=== PATIENT | female | born 1995 | race Caucasian/White ===

== ENCOUNTER → 2017-08-19 | Outpatient (CLI) | payer MEDICAID ==
--- NOTE | 2017-08-19 14:57 | Diagnostic Imaging Report ---
INDICATION: survey. TECHNIQUE: Multiple real-time grayscale images were obtained over the gravid uterus. COMPARISON: None FINDINGS: heart rate is 174 beats per minutes. The placenta is posterior. No placenta previa. There is adequate amniotic fluid seen. The survey demonstrates normal posterior fossa appearance in lateral thickness. The stomach, the kidneys, the spine, the bladder, and three-vessel cord appear unremarkable. The cord insertion and four-chamber view are not well seen due to position. Biometrical measurements are as follows: Biparietal 4.9 cm, age 20 weeks 6 days. Head circumference 17.5 cm, age 20 weeks 1 days. Abdominal circumference 14.2 cm, age 19 weeks 5 days. Femur length 3.4 cm, age 20 weeks 4 days. Sonographic estimate age: 20 weeks 3 days. Sonographic estimated date of delivery: 01/03/18. Estimated Weight: 330 gm (+/- 48 gm). LMP percentile: 27%. heart rate: 174 beats per minute. number: 1 of 1. IMPRESSION: Followup within two weeks is suggested to reevaluate the four-chamber view and cord insertion. Dictated by: Dictated on workstation # [id number]
== END ==
LOC: RAD 13:16
PROVIDERS: ATTEND Obstetrics & Gynecology
DX: Z36 Encounter for antenatal screening of mother (principal); Z3A.20 20 weeks gestation of pregnancy
CPT/HCPCS: 76805

== ENCOUNTER 2017-11-26 15:08 | Outpatient (CLI) | payer MEDICAID ==
[~2017-11-26] VITALS: Ht 162.6 cm; Wt 78.9 kg
[2017-11-26 15:23] VITALS: BP 127/77
[2017-11-26] MEDS ORDERED: FERR325T5 PO (15:27)
[2017-11-26] MEDS ORDERED: PREN1TAB86 PO (15:27)
[2017-11-26 15:50] VITALS: BP 125/81
[2017-11-26 16:20] VITALS: BP 125/81
--- NOTE | 2017-11-28 09:44 | Physician Query-Final Dx ---
HARDIK JONES 11/28/17 0944: Clinic Account Progress/Dx Physician Query: Please give diagnosis Date of Service Nov 26, 2017 at 15:08 JAILENE CADENA DO 11/28/17 1026: Clinic Account Progress/Dx DIAGNOSIS: Diagnosis 33 week IUP Swelling of lower extremities in HARDIK JONES Nov 28, 2017 09:44 JAILENE CADENA DO Nov 28, 2017 10:26
== END 2017-11-26 16:20 | disposition home or self-care (01) ==
LOC: WSo 15:08 → LDRP 15:09 → WSo 16:20
PROVIDERS: ATTEND Obstetrics & Gynecology
DX: O26.893 Other specified pregnancy related conditions, third trimester (principal); M79.89 Other specified soft tissue disorders; Z3A.33 33 weeks gestation of pregnancy
CPT/HCPCS: 99213

== ENCOUNTER 2017-12-21 21:15 | Outpatient (CLI) | payer MEDICAID ==
[~2017-12-21] VITALS: Ht 162.6 cm; Wt 80.3 kg
[~2017-12-21 21:15] MED LIST: FERR325T5 PO; PREN1TAB86 PO
[2017-12-21 21:46] VITALS: BP 139/89
[2017-12-21 22:10] VITALS: BP 139/89
--- NOTE | 2017-12-23 15:52 | Physician Query-Final Dx ---
HARDIK JONES 12/23/17 1552: Clinic Account Progress/Dx Physician Query: Please give diagnosis Date of Service Dec 21, 2017 at 21:15 INDIRA JIMENEZ MD 12/24/17 0802: Clinic Account Progress/Dx DIAGNOSIS: Diagnosis false labor HARDIK JONES Dec 23, 2017 15:52 INDIRA JIMENEZ MD Dec 24, 2017 08:02
== END 2017-12-21 22:10 | disposition home or self-care (01) ==
LOC: WSo 21:15 → LDRP 21:16 → WSo 22:10
PROVIDERS: ATTEND Obstetrics & Gynecology
DX: O47.1 False labor at or after 37 completed weeks of gestation (principal); Z3A.38 38 weeks gestation of pregnancy
CPT/HCPCS: 99213

== ENCOUNTER 2017-12-26 18:39 | Inpatient (IN) | payer MEDICAID ==
[~2017-12-26] VITALS: Ht 162.6 cm; Wt 81.3 kg
[2017-12-26] VITALS (14 sets, daily range): BP systolic 128–170; BP diastolic 55–93
[2017-12-26] MEDS ORDERED: D5 LR IV SOLUTION 1,000 ML IV ONE (20:31)
--- NOTE | 2017-12-26 21:43 | History & Physical-OB ---
OB - Chief Complaint & HPI Date/Time Date of Admission: Date of Admission: 12/26/2017 Time Seen by Provider: 21:30 Chief Complaint/History OB-Reason for Admission/Chief: Onset of Labor Hx : 1 Hx Para: 0 Expected Date of Delivery: Jan 03, 2018 Gestational Age in Weeks: 38 Gestational Age in Days: 6 Admission Nurse Assessment Rev: Yes History of Labs A pos Antibody neg RI RPR NR HBsAg NR HIV NR GC neg GBS neg Allergies and Home Medications Allergies Coded Allergies: No Known Drug Allergies (Unverified , 11/26/17) Home Medications Ferrous Sulfate 325 Mg Tablet.dr, 325 MG PO DAILY, (Reported) Vit W-Ca,Fe,FA(<1 mg) 1 Each Tablet, 1 EACH PO DAILY, (Reported) OB - History Hx of Present Care: Yes Ultrasounds: Normal mid trimester US Obstetrical Complications: None Medical Complications: None Patient Past Medical History n/a Social History/Family History Recent Infectious Disease Expo: No Immunizations Date of Influenza Vaccine: Sep 25, 2017 OB - Admission Exam Physical Exam Vitals: Vital Signs 12/26/17 19:00 Temp 97.9 Pulse 79 Resp 20 B/P (MAP) 136/84 (101) HEENT: NCAT Heart: Rhythm Normal Lungs: Clear Abdomen: Gravid Extremities: Normal Reflexes: Normal Cervical Dilatation: 4cm Effacement: 75% Station: -1 Membranes: Intact Heart Rate: 130's Accelerations: Accelerations Present Decelerations: No Decelerations Short Term Variability: Present Tool Trouble Shooter Variability: Average (6-25) Contractions on Admission: < 5 Minutes Apart Intensity: Firm OB - Assessment/Plan/Diagnosis Assessment Assessment: active labor Plan Induction Method: AROM Other Plan Augmentation of active labor with AROM. Expectant management, may have epidural at request. Discharge Diagnosis Diagnosis: 22 yo @ 38.6 weeks Active labor GBS neg JAILENE CADENA DO Dec 26, 2017 9:43 pm
[2017-12-26] MEDS ORDERED: D5 LR IV SOLUTION 1,000 ML IV SCH (22:22)
[2017-12-26] MEDS ORDERED: LACTATED RINGERS 1,000 ML IV ONE (22:23)
[2017-12-26 22:28] LABS: BASOPHILS % (AUTO) 0 % (0-10); EOSINOPHILS # (AUTO) 0.1 10^3/uL (0.0-0.3); EOSINOPHILS % (AUTO) 0 % (0-10); HEMATOCRIT 33 % (35-52); HEMOGLOBIN 11.2 G/DL (11.5-16.0); LYMPHOCYTES # (AUTO) 2.4 X 10^3 (1.0-4.0); LYMPHOCYTES % (AUTO) 13 % (12-44); MEAN CORPUSCULAR HEMOGLOBIN 30 PG (25-34); MEAN CORPUSCULAR HGB CONC 34 G/DL (32-36); MEAN CORPUSCULAR VOLUME 89 FL (80-99); MEAN PLATELET VOLUME 12.5 FL (7.4-10.4); MONOCYTES # (AUTO) 1.6 X 10^3 (0.0-1.0); MONOCYTES % (AUTO) 9 % (0-12); NEUTROPHILS # (AUTO) 14.1 X 10^3 (1.8-7.8); NEUTROPHILS % (AUTO) 78 % (42-75); PLATELET COUNT 228 10^3/uL (130-400); RED CELL DISTRIBUTION WIDTH 12.9 % (10.0-14.5); WHITE BLOOD COUNT 18.2 10^3/uL (4.3-11.0)
[2017-12-26] MEDS ORDERED: EPIDURAL (SUFENTA 0.6MCG/ML BUPIVA 0.125%) 100 ML BAG EPI SCH (22:30)
[2017-12-26] MEDS ORDERED: CATHETER FLUSH 10 ML SYR IV PRN (22:30)
[2017-12-26] MEDS ORDERED: NALOXONE 0.4 MG/ML 1 ML (NARCAN) VIAL IV PRN (22:30)
[2017-12-26] MEDS ORDERED: ONDANSETRON 4 MG/2 ML (SDV) Z0FRAN ONE (22:36)
[2017-12-26 22:46] LABS: BAND NEUTROPHILS 2 %; BASOPHILS % (MANUAL) 0 %; EOSINOPHILS % (MANUAL) 1 %; LYMPHOCYTES % (MANUAL) 17 %; MONOCYTES % (MANUAL) 3 %; NEUTROPHILS % (MANUAL) 77 %; RBC MORPH NORMAL
[2017-12-26] MEDS ORDERED: BUPIVACAINE 0.25% 30 ML (SENSORCAINE) VIAL ONE (22:59)
[2017-12-26] MEDS ORDERED: fentaNYL INJECTION 100 MCG/2 ML AMP ONE (22:59)
[2017-12-26] MEDS ORDERED: SUFENTA 0.6MCG/ML BUPIVA 0.125 100 ML ONE (23:51)
[2017-12-26] MEDS ORDERED: OXYTOCIN/NORMAL SALINE 500 ML IV ONE (23:52)
[2017-12-27] VITALS (17 sets, daily range): BP systolic 117–157; BP diastolic 58–90
[2017-12-27] MEDS ORDERED: OXYTOCIN/NORMAL SALINE 500 ML IV SCH ×2 (00:48→02:14)
[2017-12-27] MEDS ORDERED: EPIDURAL (SUFENTA 0.6MCG/ML BUPIVA 0.125%) 100 ML BAG EPI SCH (01:00)
[2017-12-27] MEDS ORDERED: DIBUCAINE (NUPERCAINAL) 1% OINT 30 GM TOP PRN (02:15)
[2017-12-27] MEDS ORDERED: TETANUS,DIPTH,PERTUSS P/F (BOOSTRIX) 0.5 ML VIAL IM ONE (02:15)
[2017-12-27] MEDS ORDERED: BENZOCAINE/MENTHOL (DERMOPLAST) 56 ML CAN TP PRN (02:15)
[2017-12-27] MEDS ORDERED: MEASLES,MUMPS,RUBELLA 1 EA INJ SQ ONE (02:15)
[2017-12-27] MEDS ORDERED: WITCH HAZEL(TUCKS) 40 EA JAR TOP PRN (02:15)
--- NOTE | 2017-12-27 02:18 | OB Labor & Delivery Record ---
L&D History Date of Service Date of Service: Dec 27, 2017 History Expected Date of Delivery: Jan 03, 2018 Gestational Age in Weeks: 38 Hx : 1 Hx Para: 0 Complications Events: Routine care Operative Indications (Cesarea: N/A-Vaginal Delivery Intrapartal Events: None L&D Stage1 Stage One Onset of Labor - Date: Dec 27, 2017 Monitors and Tracing Monitor Mode: External Heart Rate: 120 Station: -2 Vital Signs VS - Last 72 Hours, by Label 12/26/17 12/26/17 12/26/17 12/26/17 19:00 21:00 22:00 23:00 Temp 97.9 98.3 98.3 Pulse 79 75 85 Resp 20 20 20 B/P (MAP) 136/84 (101) 132/65 (87) 137/93 (108) Pulse Ox 99 12/26/17 12/26/17 12/26/17 12/26/17 23:15 23:17 23:20 23:23 Pulse 76 80 75 96 Resp 20 20 20 20 B/P (MAP) 166/88 (114) 170/71 (104) 136/71 (92) 128/83 (98) Pulse Ox 100 100 100 100 O2 Delivery Room Air Room Air Room Air Room Air 12/26/17 12/26/17 12/26/17 12/26/17 23:26 23:30 23:33 23:35 Pulse 80 83 78 77 Resp 20 20 20 20 B/P (MAP) 134/62 (86) 133/61 (85) 131/55 (80) 129/61 (83) Pulse Ox 99 99 99 O2 Delivery Room Air Room Air Room Air Room Air 12/26/17 12/26/17 12/26/17 12/27/17 23:38 23:41 23:45 00:00 Pulse 78 75 75 75 Resp 20 20 20 20 B/P (MAP) 129/63 (85) 130/64 (86) 130/72 (91) 125/67 (86) Pulse Ox 99 99 99 99 O2 Delivery Room Air Room Air Room Air Room Air Rupture of Membranes Spontaneous Ruture of Membrane: No Amniotic Membrane Rupture Time: 2123 Amniotic Membrane Fluid Desc.: Clear Vaginal Bleeding Description: Normal Show Induction/Anesthesia Epidural Cath Placement - Time: 2315 L&D Stage2 Stage Two Stage II Date: Dec 27, 2017 Monitors and Tracing Monitor Mode: External Heart Rate: 100 Monitor Accelerations: Uniform Monitor Decelerations: Variable Pie Dough Roller Variability: Moderate (11-25) Short Term Variability: Present Position: Right Occiput Anterior Presentation: Vertex Cord Descript/Complications Cord Vessel Description: 3 Vessels Delivery Type Delivery Method: Spontaneous Vaginal Anterior Shoulder: Right Episiotomy/Perineal Laceration Laceraction(s)/Extensions: Yes Episiotomy Description: Right Mediolateral Location Modifier: Right Degree (describe repair) RML repaired using 3-0 and 2-0 vicryl suture in usual fashion Condition of Delivery 1 minute Comment: 8 5 minute Comment: 9 Condition of Infant Condition of Infant: Living Exam: No Observed Abnormalities Live female weight 6lbs 8 oz. Resuscitation Resuscitation: N/A - Spontaneous Resp L&D Stage3 Stage Three Stage III Date: Dec 27, 2017 Pictocin Pitocin Administration mu/min: 2 Pitocin ml/hr: 2 Pitocin Administration Comment: 30 mu wide open at delivery of placenta Placenta Delivery Placenta Delivery: Spontaneous Delivery Summary Summary Estimated blood loss (mL): 300 Attending at delivery: Jailene Cadena DO Condition of Delivery Examined: Cervix Examined, Uterus Explored Post Hemorrhage: No Condition of Mother stable Condition of Infant (s) stable JAILENE CADENA DO Dec 27, 2017 02:18
--- NOTE | 2017-12-27 02:19 | Discharge Inst-Women's Service ---
Discharge Inst-Women's Serv Depart Medication/Instructions New, Converted or Re-Newed RX: RX on Chart Consults/Follow Up Additional Follow Up: Yes Orders/Referrals Dr. Cadena in 6 weeks Activity Activity: Activity as Tolerated Driving Instructions: No Driving for 1 Week NO SMOKING: NO SMOKING Nothing Inside Vagina: No Douching, No [place], No Tampons Diet Discharge Diet: No Restrictions Symptoms to Report to : Bleeding Excessive, Pain Increased, Fever Over 101 Degrees F, Vaginal Bleeding Increase, Questions/Concerns For Any Problems or Questions: Contact Your Physician Skin/Wound Care Bathing Instructions: Shower (x 2 weeks or sitz baths) JAILENE CADENA DO Dec 27, 2017 02:19
[2017-12-27] MEDS ORDERED: Benzocaine/Menthol TP (02:21)
[2017-12-27] MEDS ORDERED: IBUP-1773 PO (02:21)
[2017-12-27] MEDS ORDERED: ACHD5005 PO (02:21)
[2017-12-27] MEDS ORDERED: DOCU100C37 PO (02:21)
[2017-12-27] MEDS ORDERED: diphenhydrAMINE 50 MG/ML INJ (BENADRYL) IV PRN (03:45)
[2017-12-27] MEDS: IBUPROFEN 600 MG (MOTRIN) TAB PO SCH ×4 (03:45→21:58)
[2017-12-27] MEDS ORDERED: CATHETER FLUSH 10 ML SYR IV SCH ×2 (06:00)
--- NOTE | 2017-12-27 08:24 | Anesthesia-Regional Post-Op ---
Regional Patient Condition Mental Status: Alert, Oriented x3 Circulation: Same as Pre-Op Headache: Absent Sensation: Full Recovery Motor Block: Absent Post Op Complications Complications None Follow Up Care/Instructions Patient Instructions None needed. Anesthesia/Patient Condition Patient is doing well, no complaints, stable vital signs, no apparent adverse anesthesia problems. No complications reported per nursing. D/C home per [facility] [place] Criteria: Yes ABE KINNEY CRNA Dec 27, 2017 08:24
[2017-12-27] MEDS: PRENATAL VITAMIN 1 EA TAB PO SCH (08:53)
[2017-12-27] MEDS: DOCUSATE SODIUM 100 MG (COLACE) CAP PO SCH ×2 (08:53→21:58)
[2017-12-27] MEDS: FERROUS SULF 325 MG (IRON) TAB PO SCH (08:53)
[2017-12-27] MEDS: HYDROcodone/APAP 5 MG/325 MG (LORTAB) TAB PO PRN ×3 (14:05→23:30)
[2017-12-28 03:44] VITALS: BP 122/68
[2017-12-28] MEDS: IBUPROFEN 600 MG (MOTRIN) TAB PO SCH ×3 (03:44→15:39)
[2017-12-28 06:11] LABS: BASOPHILS % (AUTO) 0 % (0-10); EOSINOPHILS # (AUTO) 0.1 10^3/uL (0.0-0.3); EOSINOPHILS % (AUTO) 1 % (0-10); HEMATOCRIT 29 % (35-52); HEMOGLOBIN 9.6 G/DL (11.5-16.0); LYMPHOCYTES # (AUTO) 3.3 X 10^3 (1.0-4.0); LYMPHOCYTES % (AUTO) 23 % (12-44); MEAN CORPUSCULAR HEMOGLOBIN 30 PG (25-34); MEAN CORPUSCULAR HGB CONC 33 G/DL (32-36); MEAN CORPUSCULAR VOLUME 91 FL (80-99); MEAN PLATELET VOLUME 11.9 FL (7.4-10.4); MONOCYTES # (AUTO) 1.1 X 10^3 (0.0-1.0); MONOCYTES % (AUTO) 8 % (0-12); NEUTROPHILS # (AUTO) 10.1 X 10^3 (1.8-7.8); NEUTROPHILS % (AUTO) 69 % (42-75); PLATELET COUNT 161 10^3/uL (130-400); RED BLOOD COUNT 3.18 10^6/uL (4.35-5.85); RED CELL DISTRIBUTION WIDTH 13.2 % (10.0-14.5); WHITE BLOOD COUNT 14.6 10^3/uL (4.3-11.0)
[2017-12-28 08:00] VITALS: BP 122/68
[2017-12-28] MEDS: PRENATAL VITAMIN 1 EA TAB PO SCH (08:29)
[2017-12-28] MEDS: FERROUS SULF 325 MG (IRON) TAB PO SCH (08:29)
[2017-12-28] MEDS: DOCUSATE SODIUM 100 MG (COLACE) CAP PO SCH (08:29)
[2017-12-28] MEDS: HYDROcodone/APAP 5 MG/325 MG (LORTAB) TAB PO PRN ×2 (08:29→13:45)
--- NOTE | 2017-12-28 13:26 | Progress Note-Standard ---
Standard Progress Note Progress Notes/Assess & Plan Date Seen by Provider: Dec 28, 2017 Time Seen by Provider: 13:10 Progress/Assessment & Plan PPD #1 s/p Doing well Vital Sign - Last 12Hours 12/28/17 12/28/17 03:44 08:00 Temp 96.9 97.8 Pulse 69 80 Resp 18 18 B/P (MAP) 122/68 (86) 122/68 (86) Pulse Ox 99 99 O2 Delivery Room Air Room Air Laboratory Tests Test 12/28/17 05:39 Range/Units White Blood Count 14.6 H 4.3-11.0 10^3/uL Red Blood Count 3.18 L 4.35-5.85 10^6/uL Hemoglobin 9.6 L 11.5-16.0 G/DL Hematocrit 29 L 35-52 % Mean Corpuscular Volume 91 80-99 FL Mean Corpuscular Hemoglobin 30 25-34 PG Mean Corpuscular Hemoglobin Concent 33 32-36 G/DL Red Cell Distribution Width 13.2 10.0-14.5 % Platelet Count 161 130-400 10^3/uL Mean Platelet Volume 11.9 H 7.4-10.4 FL Neutrophils (%) (Auto) 69 42-75 % Lymphocytes (%) (Auto) 23 12-44 % Monocytes (%) (Auto) 8 0-12 % Eosinophils (%) (Auto) 1 0-10 % Basophils (%) (Auto) 0 0-10 % Neutrophils # (Auto) 10.1 H 1.8-7.8 X 10^3 Lymphocytes # (Auto) 3.3 1.0-4.0 X 10^3 Monocytes # (Auto) 1.1 H 0.0-1.0 X 10^3 Eosinophils # (Auto) 0.1 0.0-0.3 10^3/uL Basophils # (Auto) 0.0 0.0-0.1 10^3/uL FF and below umbilicus PPD #1 s/p acute blood loss anemia, stable JUANIS COOK DO Dec 28, 2017 13:26
[2017-12-28 13:30] VITALS: BP 125/77
[2017-12-28] MEDS ORDERED: TETANUS,DIPTH,PERTUSS P/F (BOOSTRIX) 0.5 ML VIAL IM ONE (13:46)
[2017-12-28 17:00] VITALS: BP 125/77
--- NOTE | 2017-12-31 15:13 | Physician Query-Final Dx ---
Final Diagnosis Give Final Diagnosis Please give Final Diagnosis CHRIS SKELTON Dec 31, 2017 15:13
== END 2017-12-28 17:00 | disposition home or self-care (01) | DRG 775 ==
LOC: WSo 18:39 → LDRP 18:40 → WSo 22:11 → LDRP 12-27 01:44
PROVIDERS: ADMIT Obstetrics & Gynecology; ATTEND Obstetrics & Gynecology
PROC: 0W8NXZZ Division of Female Perineum, External Approach (ICD-10-PCS; principal; 2017-12-27)
PROC: 10E0XZZ Delivery of Products of Conception, External Approach (ICD-10-PCS; 2017-12-27)
DX: O90.81 Anemia of the puerperium (principal); D62 Acute posthemorrhagic anemia; Z3A.38 38 weeks gestation of pregnancy; Z37.0 Single live birth; Z23 Encounter for immunization
CPT/HCPCS: 36415; 85007; 85025; 85027; 86850; 86900; 86901; 90715

== ENCOUNTER 2023-06-16 09:11 | Emergency (ER) | payer SELFPAY ==
[~2023-06-16] VITALS: Ht 162.5 cm; Wt 68.0 kg
[~2023-06-16 09:11] MED LIST changes: +ACHD5005 PO; +Benzocaine/Menthol TP; +DOCU100C37 PO; +IBUP-1773 PO
--- NOTE | 2023-06-16 09:26 | ED General ---
General Chief Complaint: Foreign Body Stated Complaint: STUCK TAMPON Source of Information: Patient Exam Limitations: No Limitations History of Present Illness Date Seen by Provider: Jun 16, 2023 Time Seen by Provider: 09:16 Initial Comments 28-year-old female presents to the emergency department today for tampon removal. She states she has unable to get it out since . She denies any fevers or chills. She vomited once this morning. All other systems reviewed and negative except documented per HPI. Voice recognition software was used to help create this chart Allergies and Home Medications Allergies Coded Allergies: No Known Drug Allergies (Unverified , 11/26/17) Patient Home Medication List Home Medication List Reviewed: Yes Docusate Sodium (Docusate Sodium) 100 Mg Capsule, 100 MG PO BID PRN for CONSTIPATION-1ST LINE Prescribed by: JAILENE CADENA on 12/27/17220 Ferrous Sulfate (Ferrous Sulfate) 325 Mg Tablet.dr, 325 MG PO DAILY, (Reported) Entered as Reported by: ADEBAYO SPARKS on 11/26/17 1527 Hydrocodone Bit/Acetaminophen (Lortab 5 Mg Tablet) 1 Tab Tab, 1-2 TAB PO Q4H PRN for PAIN-MODERATE Prescribed by: JAILENE CADENA on 12/27/17220 Ibuprofen (Ibuprofen) 600 Mg Tablet, 600 MG PO Q6H Prescribed by: JAILENE CADENA on 12/27/17220 Vit W-Ca,Fe,FA(<1 mg) ( Vitamins) 1 Each Tablet, 1 EACH PO DAILY, (Reported) Entered as Reported by: ADEBAYO SPARKS on 11/26/17 1527 [Benzocaine/Menthol] 56 ML AEROSOL, 56 ML TP UD PRN for PAIN- SEE INSTRUCTIONS Prescribed by: JAILENE CADENA on 12/27/17220 Review of Systems Review of Systems Constitutional: see HPI Past [id number] Hx Patient Social History Tobacco Use?: No Use of E-Cig and/or Vaping dev: No Substance use?: No Immunizations Up To Date PED Vaccines UTD: Yes Seasonal Allergies Seasonal Allergies: No Past Medical History Surgeries: No Respiratory: No Cardiac: No Neurological: No Genitourinary: No Gastrointestinal: No Musculoskeletal: No Endocrine: No HEENT: No Cancer: No Psychosocial: No Integumentary: No Blood Disorders: No Adverse Reaction/Blood Tranf: No Family Medical History Patient reports no known family medical history. Physical Exam Vital Signs Capillary Refill : Height, Weight, BMI Height: 5'4.00" Weight: 179lbs. 4.0oz. 81.090855zh; 30.8 BMI Method: General Appearance: No Apparent Distress Respiratory: Chest Non Tender, Lungs Clear, Normal Breath Sounds, No Accessory Muscle Use, No Respiratory Distress Cardiovascular: Regular Rate, Rhythm, No Murmur, Normal Peripheral Pulses Gastrointestinal: No Organomegaly, Non Tender, Soft Progress/Results/Core Measures Suspected Sepsis SIRS Temperature: Pulse: Respiratory Rate: Blood Pressure / Mean: Results/Orders Vital Signs/I&O Capillary Refill : Departure Communication (Admissions) Tampon was removed under direct visualization without complication. Impression Primary Impression: Retained tampon Qualified Codes: T19.2XXA - Foreign body in vulva and vagina, initial encounter Disposition: 01 HOME, SELF-CARE Condition: Stable Departure-Patient Inst. Referrals: JAILENE CADENA DO (PCP/Family) Primary Care Physician Patient Instructions: Vaginal Foreign Body ELIAS STILES DO Jun 16, 2023 09:26
[2023-06-16 10:12] VITALS: BP 134/84
== END 2023-06-16 10:12 | disposition home or self-care (01) ==
LOC: EDUNIT# 09:11 → ER 09:14
DX: T19.2XXA Foreign body in vulva and vagina, initial encounter (principal)
CPT/HCPCS: 99282

== ENCOUNTER → 2023-10-25 | Outpatient (CLI) | payer SELFPAY | LOC: LAB 13:07 | PROVIDERS: ATTEND Family Medicine | DX: O20.9 Hemorrhage in early pregnancy, unspecified (principal); Z3A.00 Weeks of gestation of pregnancy not specified | CPT/HCPCS: 36415; 84702 ==